=== PATIENT | female | born 1990 | race Two or more races ===

== ENCOUNTER 2019-04-14 16:33 | Emergency (ER) | payer SELFPAY ==
[2019-04-14 16:39] VITALS: BP 105/63
--- NOTE | 2019-04-14 17:26 | ER Document Report ---
HPI - HPI Time Seen by Provider: 04/14/19 17:04 Pain Level: 1 Context: Patient is a 28-year-old female who presents emergency department with a rash to her left shoulder and left scapular area. Her rash started 3 days ago. She has tried topical Benadryl cream and oral Benadryl and states that has not gotten any better. She states that it is a sharp shooting pain to her left shoulder. Denies any fever, body aches, or any other symptoms. - CONSTITUTIONAL Constitutional: DENIES: Fever, Chills - EENT EENT: DENIES: Sore Throat - NEURO Neurology: DENIES: Headache, Weakness - CARDIOVASCULAR Cardiovascular: DENIES: Chest pain - RESPIRATORY Respiratory: DENIES: Trouble Breathing, Coughing - GASTROINTESTINAL Gastrointestinal: DENIES: Abdominal Pain - REPRODUCTIVE Reproductive: DENIES: : - MUSCULOSKELETAL Musculoskeletal: DENIES: Extremity pain, Back Pain - DERM Skin Color: Normal Skin Problems: Rash - Left lateral shoulder, left posterior shoulder Past Medical History - General Information source: Patient - Social History Smoking Status: Never Smoker Family History: Reviewed & Not Pertinent Vertical Provider Document - CONSTITUTIONAL Agree With Documented VS: Yes Exam Limitations: No Limitations General Appearance: No Apparent Distress - HEENT HEENT: Atraumatic, Normocephalic, PERRLA - NECK Neck: Normal Inspection - RESPIRATORY Respiratory: Breath Sounds Normal, No Respiratory Distress - CARDIOVASCULAR Cardiovascular: Regular Rate, Regular Rhythm Pulses: Normal: Radial - MUSCULOSKELETAL/EXTREMETIES Musculoskeletal/Extremeties: FROM, Non-Tender - NEURO Level of Consciousness: Awake, Alert, Appropriate Motor/Sensory: No Motor Deficit, No Sensory Deficit - DERM Integumentary: Warm, Dry, No Rash Course - Re-evaluation Re-evalutation: 04/14/19 17:46 Dr. Diaz He will continue bedside to evaluate the patient. She is in agreement that the patient most likely has shingles. The patient will be treated with acyclovir and prednisone. She also be sent home with [place] to help with her pain. I do not suspect measles, mumps, rubella or any other life-threatening rash at this time. Follow-up precautions were given. Verbal discharge instructions were given to the patient. They verbalized understanding. They are stable for discharge. - Vital Signs Vital signs: Temp Pulse Resp BP Pulse Ox 98.1 F 69 18 105/63 100 04/14/19 16:37 04/14/19 16:37 04/14/19 16:37 04/14/19 16:37 04/14/19 16:37 Discharge - Discharge Clinical Impression: Rash Condition: Stable Disposition: HOME, SELF-CARE Additional Instructions: Your rash and pain is consistent with a diagnosis of shingles. This is a reactivation of the chickenpox virus you had as a child. You are being started on medicines to combat the virus as well as steroids. Please take exactly as directed until the medications are completed. Return to the emergency de partment immediately if you develop severe headache, weakness, numbness, worsening of the rash, fever, persistent vomiting, or any other symptoms that are worrisome to you. Prescriptions: Acyclovir [Zovirax 800 mg Tablet] 800 mg PO 5XD 10 Days #50 tab Hydrocodone/Acetaminophen [[place] 5-325 mg Tablet] 1 tab PO Q4 PRN #20 tablet PRN Reason: Prednisone [Deltasone 20 mg Tablet] 20 tab PO ASDIR 5 Days tablet Forms: Return to Work Referrals: [facility] [Provider Group] - Follow up as needed [facility] [Provider Group] - Follow up as needed
== END 2019-04-14 18:00 | disposition home or self-care (01) ==
LOC: ER 16:33
DX: R21 Rash and other nonspecific skin eruption (principal); M25.512 Pain in left shoulder
CPT/HCPCS: 99282

== ENCOUNTER 2019-11-09 14:26 | Emergency (ER) | payer OTHER ==
[2019-11-09 14:49] VITALS: BP 116/78
--- NOTE | 2019-11-09 15:16 | ER Document Report ---
ED Respiratory Problem - General Chief Complaint: Cold Symptoms Stated Complaint: CHEST PAIN,PALPITATIONS,COUGH Time Seen by Provider: 11/09/19 15:10 Primary Care Provider: [facility] [Provider Group] - Follow up as needed [facility] [Provider Group] - Follow up as needed [facility] [Provider Group] - Follow up as needed [facility] [Provider Group] - Follow up as needed [facility] [Provider Group] - Follow up as needed Mode of Arrival: Ambulatory Information source: Patient Notes: 29-year-old female presents to ED for cough cold congestion. She states she has had a cough for about 3 days and when she coughs sometimes she does get some chest discomfort. She states she has had intermittent palpitations for 2 weeks. She is not having any palpitations at this time. She only has the chest discomfort when she coughs. She does have a upper respiratory infection postnasal drip at this time. Patient is alert oriented respirations regular nonlabored chest is clear to auscultation. TRAVEL OUTSIDE OF THE [place] IN LAST 30 DAYS: No - HPI Patient complains to provider of: Cough Onset: Other - 2 to 3 days Duration: Intermittent episodes Initiating Event: URI Quality of pain: No pain Severity: None Pain Level: Denies Cough: Nonproductive Sputum amount: None Associated symptoms: Chills, Congestion, PND, Runny nose, Sinus pain/pressure Similar symptoms previously: Yes Recently seen / treated by doctor: No - Related Data Allergies/Adverse Reactions: clorax Allergy (Uncoded 11/09/19 15:03) seafood Allergy (Uncoded 11/09/19 15:03) Past Medical History - General Information source: Patient - Social History Smoking Status: Never Smoker Chew tobacco use (# tins/day): No Frequency of alcohol use: None Drug Abuse: None Lives with: Family Family History: Reviewed & Not Pertinent Patient has suicidal ideation: No Patient has homicidal ideation: No - Past Medical History Cardiac Medical History: Reports: None Pulmonary Medical History: Reports: Hx Bronchitis EENT Medical History: Reports: None Neurological Medical History: Reports: None Endocrine Medical History: Reports: None Renal/ Medical History: Reports: None Malignancy Medical History: Reports: None GI Medical History: Reports: None Musculoskeletal Medical History: Reports None Skin Medical History: Reports None Psychiatric Medical History: Reports: None Traumatic Medical History: Reports: None Infectious Medical History: Reports: None Surgical Hx: Negative Past Surgical History: Reports: None - Immunizations Immunizations up to date: Yes Hx Diphtheria, Pertussis, Tetanus Vaccination: Yes Review of Systems - Review of Systems Constitutional: No symptoms reported EENT: Nose pain, Nose congestion, Nose discharge Cardiovascular: No symptoms reported Respiratory: Cough Gastrointestinal: No symptoms reported Genitourinary: No symptoms reported Female Genitourinary: No symptoms reported Musculoskeletal: No symptoms reported Skin: No symptoms reported Hematologic/Lymphatic: No symptoms reported Neurological/Psychological: No symptoms reported -: Yes All other systems reviewed and negative Physical Exam - Vital signs Vitals: Temp Pulse Resp BP Pulse Ox 98.1 F 80 18 116/78 98 11/09/19 14:49 11/09/19 14:49 11/09/19 14:49 11/09/19 14:49 11/09/19 14:49 Interpretation: Normal - General General appearance: Appears well, Alert - HEENT Head: Normocephalic, Atraumatic Eyes: Normal Pupils: PERRL Ears: Normal External canal: Normal Tympanic membrane: Normal Sinus: Normal Nasal: Purulent discharge, Swelling Mouth/Lips: Normal Mucous membranes: Normal Pharynx: Post nasal drainage Neck: Normal - Respiratory Respiratory status: No respiratory distress Chest status: Nontender Breath sounds: Nonproductive cough. No: Productive cough, Rales, Rhonchi, Stridor, Wheezing Chest palpation: Normal - Cardiovascular Rhythm: Regular Heart sounds: Normal auscultation Murmur: No - Abdominal Inspection: Normal Distension: No distension Bowel sounds: Normal Tenderness: Nontender Organomegaly: No organomegaly - Back Back: Normal, Nontender - Extremities General upper extremity: Normal inspection, Nontender, Normal color, Normal ROM, Normal temperature General lower extremity: Normal inspection, Nontender, Normal color, Normal ROM, Normal temperature, Normal weight bearing. No: Noreen's sign - Neurological Neuro grossly intact: Yes Cognition: Normal Orientation: AAOx4 Luz Coma Scale Eye Opening: Spontaneous [place] Coma Scale Verbal: Oriented Luz Coma Scale Motor: Obeys Commands Luz Coma Scale Total: 15 Speech: Normal Motor strength normal: LUE, RUE, LLE, RLE Sensory: Normal - Psychological Associated symptoms: Normal affect, Normal mood - Skin Skin Temperature: Warm Skin Moisture: Dry Skin Color: Normal Course - Re-evaluation Re-evalutation: 11/09/19 15:39 Assessment consistent with an upper respiratory infection she has no chest pain at this time. She has no palpitations at this time. I have given her instructions to please follow-up with a primary doctor and a power transformer inspector if she continues to have palpitations. Patient verbalized understanding and agreement treatment plan and patient was discharged home. - Vital Signs Vital signs: Temp Pulse Resp BP Pulse Ox 98.1 F 80 18 116/78 98 11/09/19 14:49 11/09/19 14:49 11/09/19 14:49 11/09/19 14:49 11/09/19 14:49 Discharge - Discharge Clinical Impression: Intermittent palpitations URI (upper respiratory infection) Qualifiers: URI type: unspecified URI Qualified Code(s): J06.9 - Acute upper respiratory infection, unspecified Condition: Stable Disposition: HOME, SELF-CARE Additional Instructions: UPPER RESPIRATORY ILLNESS: You have a viral infection of the respiratory passages -- a "cold." This common infection causes nasal congestion, drainage, and often sore throat and cough. It is highly contagious. The disease usually lasts about 10 to 14 days. There is no "cure" for the viral infection -- it must run its course. If there is a complication, such as bacterial infection in the nose, sinuses, middle ear, or bronchial tubes, antibiotics may be required. The antibiotics won't affect the virus. Drink plenty of fluids. A humidifier may help. An expectorant medication or decongestant may make you more comfortable. Use acetaminophen or ibuprofen for fever or aches. See the doctor if fever persists over two days, if there is any significant worsening of your symptoms, or if you simply fail to improve as expected. You have been recommended treatment with Flonase which is [id number] 1 spray each nostril twice a day. Can also use nasal saline spray you could also use salt soda solution gargles. These will help to remove the drainage from the back your throat. Chloraseptic spray was [id number] that will also help with your sore throat. Salt and soda solution gargle 1 quart of water 1 tablespoon of salt 1 teaspoon of baking soda Mixed 3 ingredients together and boil for 1 minute Placed in a covered quart jar Use 1/2 ounce of cold solution to gargle 3 times a day USE OF ACETAMINOPHEN (Tylenol): Acetaminophen may be taken for pain relief or fever control. It's much safer than aspirin, offering a wider range of "safe" dosages. It is safe during . Some brand names are Tylenol, Panadol, Datril, Anacin 3, Tempra, and Liquiprin. Acetaminophen can be repeated every four hours. The following are maximum recommended dosages: >89 pounds or adults 650 mg to 900 mg Acetaminophen can be repeated every four hours. Maximum dose not to exceed 4000 mg a day. You stated you were not having any chest pain or palpitations while in the emergency room. You still need to follow-up with a primary doctor within the next 3 to 5 days and get a referral to a power transformer inspector. They need to see the palpitation or rapid heartbeat in order to evaluate and treated. You may need to wear a Holter monitor in order for them to catch the irregular heartbeat. Please be sure to follow-up as I have instructed. FOLLOW-UP CARE: If you have been referred to a physician for follow-up care, call the physicians office for an appointment as you were instructed or within the next two days. If you experience worsening or a significant change in your symptoms, notify the physician immediately or return to the Emergency Department at any time for re-evaluation. Referrals: [facility] [Provider [facility]] - Follow up as needed [facility] [Provider Group] - Follow up as needed [facility] [Provider Group] - Follow up as needed [facility] [Provider Group] - Follow up as needed [facility] [Provider Group] - Follow up as needed
--- NOTE | 2019-11-09 17:22 | EKG REPORT ---
SEVERITY:- BORDERLINE ECG - SINUS RHYTHM : Confirmed by: Ritesh Black MD 09-Nov-2019 17:21:40
== END 2019-11-09 15:43 | disposition home or self-care (01) ==
LOC: ER 14:26
DX: J06.9 Acute upper respiratory infection, unspecified (principal); R00.2 Palpitations; R05 Cough; R09.82 Postnasal drip; R09.81 Nasal congestion; R09.89 Other specified symptoms and signs involving the circulatory and respiratory systems; J34.89 Other specified disorders of nose and nasal sinuses; Z91.048 Other nonmedicinal substance allergy status; Z91.013 Allergy to seafood
CPT/HCPCS: 93005; 93010; 99284